=== PATIENT | female | born 1985 | race Caucasian/White ===

== ENCOUNTER → 2018-05-11 | Outpatient (CLI) | payer OTHER ==
[2018-05-11 08:34] LABS: HEMATOCRIT 39.1 % (37.0-47.0); MEAN CELL VOLUME 86 fl (78-100); MEAN CORPUSCULAR HEMOGLOBIN 29 pg (27-31); MEAN CORPUSCULAR HGB CONC 33 g/dL (33-37); MEAN PLATELET VOLUME 9.2 fl (7.4-10.4); PLATELET COUNT 208 K/mm3 (130-400); RED BLOOD COUNT 4.55 M/mm3 (4.10-5.30); RED CELL DISTRIBUTION WIDTH 14.4 % (11.5-14.5); WHITE BLOOD COUNT 3.6 K/mm3 (4.8-10.8)
[2018-05-11 08:48] LABS: ALBUMIN 4.1 g/dL (3.5-5.0); BUN/CREATININE RATIO 20.4 (6.0-26.0); CALCIUM 8.9 mg/dL (8.4-10.2); POTASSIUM 4.3 mmol/L (3.6-5.0); TOTAL BILIRUBIN 0.4 mg/dL (0.2-1.3); TOTAL PROTEIN 6.6 g/dL (6.3-8.2)
[2018-05-11 10:13] LABS: LYMPHOCYTE 29 % (20-51); MONOCYTE 4 % (3-10); NEUTROPHILS 65 % (42-75)
== END ==
LOC: LAB 08:03
PROVIDERS: Nurse Practitioner Family
DX: C71.9 Malignant neoplasm of brain, unspecified (principal)

== ENCOUNTER → 2018-06-02 | Outpatient (CLI) | payer OTHER ==
[2018-06-02 09:24] LABS: HEMOGLOBIN 13.6 g/dL (12.5-16.0); MEAN CELL VOLUME 86 fl (78-100); MEAN CORPUSCULAR HEMOGLOBIN 29 pg (27-31); MEAN CORPUSCULAR HGB CONC 34 g/dL (33-37); PLATELET COUNT 221 K/mm3 (130-400); RED BLOOD COUNT 4.68 M/mm3 (4.10-5.30); RED CELL DISTRIBUTION WIDTH 14.4 % (11.5-14.5); WHITE BLOOD COUNT 3.6 K/mm3 (4.8-10.8)
[2018-06-02 09:28] LABS: ALBUMIN 4.3 g/dL (3.5-5.0); BUN/CREATININE RATIO 25.2 (6.0-26.0); CALCIUM 9.1 mg/dL (8.4-10.2); POTASSIUM 4.3 mmol/L (3.6-5.0); TOTAL BILIRUBIN 0.5 mg/dL (0.2-1.3); TOTAL PROTEIN 7.2 g/dL (6.3-8.2)
[2018-06-02 10:41] LABS: LYMPHOCYTE 19 % (20-51); MONOCYTE 7 % (3-10); NEUTROPHILS 73 % (42-75)
== END ==
LOC: LAB 09:02
PROVIDERS: Nurse Practitioner Family
DX: C71.9 Malignant neoplasm of brain, unspecified (principal)

== ENCOUNTER → 2018-07-01 | Outpatient (CLI) | payer OTHER ==
[2018-07-01 07:48] LABS: HEMATOCRIT 41.6 % (37.0-47.0); HEMOGLOBIN 13.9 g/dL (12.5-16.0); MEAN CELL VOLUME 85 fl (78-100); MEAN CORPUSCULAR HEMOGLOBIN 29 pg (27-31); MEAN CORPUSCULAR HGB CONC 33 g/dL (33-37); MEAN PLATELET VOLUME 8.5 fl (7.4-10.4); PLATELET COUNT 183 K/mm3 (130-400); RED BLOOD COUNT 4.87 M/mm3 (4.10-5.30); RED CELL DISTRIBUTION WIDTH 14.5 % (11.5-14.5); WHITE BLOOD COUNT 3.1 K/mm3 (4.8-10.8)
[2018-07-01 08:02] LABS: LYMPHOCYTE 16 % (20-51); MONOCYTE 10 % (3-10); NEUTROPHILS 66 % (42-75)
[2018-07-01 08:06] LABS: ALBUMIN 4.3 g/dL (3.5-5.0); BUN/CREATININE RATIO 22.7 (6.0-26.0); POTASSIUM 4.2 mmol/L (3.6-5.0); TOTAL BILIRUBIN 0.7 mg/dL (0.2-1.3); TOTAL PROTEIN 6.9 g/dL (6.3-8.2)
== END ==
LOC: LAB 07:28
PROVIDERS: Nurse Practitioner Family
DX: D49.6 Neoplasm of unspecified behavior of brain (principal)

== ENCOUNTER → 2018-08-20 | Outpatient (CLI) | payer OTHER ==
[2018-08-20 07:53] LABS: ALBUMIN 4.2 g/dL (3.5-5.0); CALCIUM 9.1 mg/dL (8.4-10.2); POTASSIUM 4.5 mmol/L (3.6-5.0); TOTAL BILIRUBIN 0.5 mg/dL (0.2-1.3); TOTAL PROTEIN 6.7 g/dL (6.3-8.2)
[2018-08-20 07:58] LABS: HEMATOCRIT 39.8 % (37.0-47.0); HEMOGLOBIN 13.5 g/dL (12.5-16.0); MEAN CELL VOLUME 86 fl (78-100); MEAN CORPUSCULAR HEMOGLOBIN 29 pg (27-31); MEAN CORPUSCULAR HGB CONC 34 g/dL (33-37); MEAN PLATELET VOLUME 8.7 fl (7.4-10.4); PLATELET COUNT 192 K/mm3 (130-400); RED BLOOD COUNT 4.61 M/mm3 (4.10-5.30); RED CELL DISTRIBUTION WIDTH 14.1 % (11.5-14.5); WHITE BLOOD COUNT 3.8 K/mm3 (4.8-10.8)
[2018-08-20 08:17] LABS: BAND 1 % (0-10); LYMPHOCYTE 5 % (20-51); MONOCYTE 9 % (3-10); NEUTROPHILS 62 % (42-75)
== END ==
LOC: LAB 07:05
PROVIDERS: Physician Assistant
DX: C71.9 Malignant neoplasm of brain, unspecified (principal)

== ENCOUNTER → 2018-11-06 | Outpatient (CLI) | payer OTHER ==
[2018-11-06 16:05] LABS: URINE APPEARANCE CLOUDY; URINE BILIRUBIN NEGATIVE (NEGATIVE); URINE COLOR YELLOW; URINE GLUCOSE NEGATIVE (NEGATIVE); URINE KETONE NEGATIVE (NEGATIVE); URINE NITRATE POSITIVE (NEGATIVE); URINE PROTEIN(semi-quant) TRACE mg/dL (NEGATIVE); URINE UROBILINOGEN NORMAL (NORMAL)
[2018-11-06 16:06] LABS: URINE BLOOD 250 ery/uL (NEGATIVE); URINE LEUKOCYTE ESTERASE 2+ (NEGATIVE); URINE WBC >50 /hpf (0-3)
== END ==
LOC: LAB 14:35
PROVIDERS: Physician Assistant
DX: R30.0 Dysuria (principal)

== ENCOUNTER → 2018-11-20 | Outpatient (CLI) | payer OTHER ==
[2018-11-20 10:56] LABS: HEMATOCRIT 42.8 % (37.0-47.0); HEMOGLOBIN 14.6 g/dL (12.5-16.0); MEAN CELL VOLUME 85 fl (78-100); MEAN CORPUSCULAR HEMOGLOBIN 29 pg (27-31); MEAN CORPUSCULAR HGB CONC 34 g/dL (33-37); MEAN PLATELET VOLUME 8.6 fl (7.4-10.4); PLATELET COUNT 220 K/mm3 (130-400); RED BLOOD COUNT 5.02 M/mm3 (4.10-5.30); RED CELL DISTRIBUTION WIDTH 13.7 % (11.5-14.5); WHITE BLOOD COUNT 5.1 K/mm3 (4.8-10.8)
[2018-11-20 11:09] LABS: ALBUMIN 4.8 g/dL (3.5-5.0); CALCIUM 9.8 mg/dL (8.4-10.2); POTASSIUM 4.3 mmol/L (3.6-5.0); TOTAL BILIRUBIN 0.5 mg/dL (0.2-1.3); TOTAL PROTEIN 7.7 g/dL (6.3-8.2)
[2018-11-23 07:43] LABS: BAND 1 % (0-10); LYMPHOCYTE 6 % (20-51); NEUTROPHILS 78 % (42-75)
[2018-11-23 07:44] LABS: MONOCYTE 7 % (3-10)
== END ==
LOC: LAB 10:38
PROVIDERS: Physician Assistant
DX: D49.6 Neoplasm of unspecified behavior of brain (principal)

== ENCOUNTER → 2018-11-23 | Outpatient (CLI) | payer OTHER ==
[2018-11-23 07:49] LABS: HEMATOCRIT 39.1 % (37.0-47.0); HEMOGLOBIN 13.5 g/dL (12.5-16.0); MEAN CELL VOLUME 86 fl (78-100); MEAN CORPUSCULAR HEMOGLOBIN 30 pg (27-31); MEAN CORPUSCULAR HGB CONC 35 g/dL (33-37); MEAN PLATELET VOLUME 8.6 fl (7.4-10.4); PLATELET COUNT 217 K/mm3 (130-400); RED BLOOD COUNT 4.57 M/mm3 (4.10-5.30); RED CELL DISTRIBUTION WIDTH 13.5 % (11.5-14.5); WHITE BLOOD COUNT 3.8 K/mm3 (4.8-10.8)
[2018-11-23 08:06] LABS: LYMPHOCYTE 8 % (20-51); MONOCYTE 3 % (3-10); NEUTROPHILS 76 % (42-75)
== END ==
LOC: LAB 07:31
PROVIDERS: Nurse Practitioner
DX: C71.9 Malignant neoplasm of brain, unspecified (principal)

== ENCOUNTER → 2018-12-29 | Outpatient (CLI) | payer OTHER ==
[2018-12-29 20:12] LABS: HEMATOCRIT 41.9 % (37.0-47.0); HEMOGLOBIN 13.6 g/dL (12.5-16.0); MEAN CELL VOLUME 89 fl (78-100); MEAN CORPUSCULAR HEMOGLOBIN 29 pg (27-31); MEAN CORPUSCULAR HGB CONC 33 g/dL (33-37); MEAN PLATELET VOLUME 9.2 fl (7.4-10.4); PLATELET COUNT 244 K/mm3 (130-400); RED BLOOD COUNT 4.73 M/mm3 (4.10-5.30); RED CELL DISTRIBUTION WIDTH 14.8 % (11.5-14.5); WHITE BLOOD COUNT 5.6 K/mm3 (4.8-10.8)
[2018-12-29 21:02] LABS: ALBUMIN 4.6 g/dL (3.5-5.0); CALCIUM 9.6 mg/dL (8.4-10.2); POTASSIUM 3.9 mmol/L (3.6-5.0); TOTAL BILIRUBIN 0.3 mg/dL (0.2-1.3); TOTAL PROTEIN 7.4 g/dL (6.3-8.2)
[2018-12-29 21:04] LABS: BAND 1 % (0-10); LYMPHOCYTE 3 % (20-51); MONOCYTE 7 % (3-10); NEUTROPHILS 85 % (42-75)
== END ==
LOC: LAB 17:02
PROVIDERS: Physician Assistant
DX: C71.9 Malignant neoplasm of brain, unspecified (principal)

== ENCOUNTER → 2019-03-10 | Outpatient (CLI) | payer OTHER | LOC: LAB 08:25 | DX: N92.6 Irregular menstruation, unspecified (principal) ==

== ENCOUNTER → 2019-03-24 | Outpatient (CLI) | payer OTHER ==
[2019-03-24 12:32] LABS: HEMATOCRIT 46.6 % (37.0-47.0); HEMOGLOBIN 14.9 g/dL (12.5-16.0); MEAN CELL VOLUME 89 fl (78-100); MEAN CORPUSCULAR HEMOGLOBIN 28 pg (27-31); MEAN CORPUSCULAR HGB CONC 32 g/dL (33-37); MEAN PLATELET VOLUME 11.6 fl (7.4-10.4); PLATELET COUNT 243 K/mm3 (130-400); RED BLOOD COUNT 5.24 M/mm3 (4.10-5.30); RED CELL DISTRIBUTION WIDTH 12.8 % (11.5-14.5); WHITE BLOOD COUNT 4.3 K/mm3 (4.8-10.8)
[2019-03-24 12:44] LABS: ALBUMIN 4.7 g/dL (3.5-5.0); CALCIUM 9.2 mg/dL (8.4-10.2); POTASSIUM 4.9 mmol/L (3.6-5.0); TOTAL BILIRUBIN 0.7 mg/dL (0.2-1.3); TOTAL PROTEIN 7.5 g/dL (6.3-8.2)
[2019-03-24 13:35] LABS: BAND 1 % (0-10); LYMPHOCYTE 39 % (20-51); MONOCYTE 15 % (3-10); NEUTROPHILS 40 % (42-75)
== END ==
LOC: LAB 12:04
PROVIDERS: Physician Assistant
DX: C71.3 Malignant neoplasm of parietal lobe (principal)

== ENCOUNTER → 2019-07-20 | Outpatient (CLI) | payer OTHER ==
[2019-07-20 16:30] LABS: ALBUMIN 4.2 g/dL (3.5-5.0); POTASSIUM 4.6 mmol/L (3.5-5.1)
[2019-07-20 16:32] LABS: CALCIUM 9.4 mg/dL (8.3-10.5)
[2019-07-20 16:33] LABS: TOTAL PROTEIN 7.4 g/dL (6.4-8.3)
[2019-07-20 16:35] LABS: TOTAL BILIRUBIN 0.3 mg/dL (0.2-1.2)
== END ==
LOC: LAB 15:43
PROVIDERS: Physician Assistant
DX: C71.3 Malignant neoplasm of parietal lobe (principal)

== ENCOUNTER → 2019-08-12 | Outpatient (CLI) | payer OTHER | LOC: AMSURD 14:07 | DX: N30.00 Acute cystitis without hematuria (principal) | CPT/HCPCS: J0696 ==

== ENCOUNTER 2019-12-15 08:45 | Emergency (ER) | payer OTHER ==
[2019-12-15] MEDS ORDERED: ZYRTEC ALLERGY10 MG PO (08:51)
[2019-12-15] MEDS ORDERED: FLUOXETINE HCL20 MG PO (08:51)
[2019-12-15] MEDS ORDERED: LEVETIRACETAM750 MG PO (08:51)
[2019-12-15 09:31] LABS: EOS # 0.2 (0.04-0.40); EOS % 5.2 % (1.0-5.0); HEMATOCRIT 39.7 % (37.0-47.0); HEMOGLOBIN 13.4 g/dL (12.5-16.0); MEAN CELL VOLUME 86 fl (78-100); MEAN CORPUSCULAR HEMOGLOBIN 29 pg (27-31); MEAN CORPUSCULAR HGB CONC 34 g/dL (33-37); MEAN PLATELET VOLUME 8.9 fl (7.4-10.4); MONO # 0.3 (0.20-0.80); PLATELET COUNT 225 K/mm3 (130-400); RED BLOOD COUNT 4.63 M/mm3 (4.10-5.30); RED CELL DISTRIBUTION WIDTH 13.4 % (11.5-14.5); WHITE BLOOD COUNT 3.1 K/mm3 (4.8-10.8)
[2019-12-15 09:39] LABS: LYMPH# 0.7 (1.50-4.00)
[2019-12-15 09:42] LABS: URINE APPEARANCE CLEAR; URINE BILIRUBIN NEGATIVE (NEGATIVE); URINE BLOOD NEGATIVE (NEGATIVE); URINE COLOR YELLOW; URINE GLUCOSE NEGATIVE (NEGATIVE); URINE KETONE TR (NEGATIVE); URINE LEUKOCYTE ESTERASE NEGATIVE (NEGATIVE); URINE NITRATE NEGATIVE (NEGATIVE); URINE PROTEIN(semi-quant) NEGATIVE (NEGATIVE); URINE UROBILINOGEN NORMAL (NORMAL); URINE WBC 0-1 /hpf (0-3)
[2019-12-15 09:46] LABS: ALBUMIN 4.5 g/dL (3.5-5.0)
[2019-12-15 09:47] LABS: POTASSIUM 4.2 mmol/L (3.5-5.1)
[2019-12-15 09:48] LABS: CALCIUM 9.7 mg/dL (8.3-10.5)
[2019-12-15 09:49] LABS: TOTAL PROTEIN 6.9 g/dL (6.4-8.3)
[2019-12-15 09:51] LABS: TOTAL BILIRUBIN 0.4 mg/dL (0.2-1.2)
[2019-12-15 09:56] LABS: MAGNESIUM 1.87 mg/dL (1.60-2.60)
[2019-12-15] MEDS ORDERED: KEPPRA1000 MG PO (10:42)
[2019-12-15] MEDS ORDERED: DIAZEPAM PO (10:42)
[2019-12-15 10:50] VITALS: BP 161/80
== END 2019-12-15 10:48 | disposition home or self-care (01) ==
LOC: ED 08:45
PROVIDERS: Physician Assistant
DX: C71.9 Malignant neoplasm of brain, unspecified (principal); R56.9 Unspecified convulsions

== ENCOUNTER → 2020-01-10 | Outpatient (CLI) | payer OTHER ==
[2019-12-15 10:50] VITALS: BP 161/80
[~2020-01-10] MED LIST: DIAZEPAM PO; FLUOXETINE HCL20 MG PO; KEPPRA1000 MG PO; LEVETIRACETAM750 MG PO; ZYRTEC ALLERGY10 MG PO
== END ==
LOC: LAB 18:12
DX: N92.6 Irregular menstruation, unspecified (principal)

== ENCOUNTER → 2020-05-05 | Outpatient (CLI) | payer OTHER | LOC: LAB 09:36 | DX: Z20.828 Contact with and (suspected) exposure to other viral communicable diseases (principal) ==

== ENCOUNTER → 2020-05-10 | Outpatient (CLI) | payer OTHER ==
[2020-05-10 18:06] LABS: HEMATOCRIT 35.7 % (37.0-47.0); HEMOGLOBIN 12.2 g/dL (12.5-16.0); MEAN PLATELET VOLUME 8.6 fl (7.4-10.4); RED BLOOD COUNT 3.97 M/mm3 (4.10-5.30); RED CELL DISTRIBUTION WIDTH 13.4 % (11.5-14.5); WHITE BLOOD COUNT 7.9 K/mm3 (4.8-10.8)
[2020-05-10 18:10] LABS: POTASSIUM 3.9 mmol/L (3.5-5.1)
[2020-05-10 18:11] LABS: CALCIUM 9.4 mg/dL (8.3-10.5)
[2020-05-10 18:12] LABS: TOTAL PROTEIN 6.9 g/dL (6.4-8.3)
[2020-05-10 18:19] LABS: TOTAL BILIRUBIN 0.1 mg/dL (0.2-1.2)
[2020-05-10 18:21] LABS: URINE APPEARANCE CLEAR; URINE COLOR YELLOW
[2020-05-10 18:22] LABS: URINE BILIRUBIN NEGATIVE (NEGATIVE); URINE BLOOD NEGATIVE (NEGATIVE); URINE GLUCOSE NEGATIVE (NEGATIVE); URINE KETONE NEGATIVE (NEGATIVE); URINE LEUKOCYTE ESTERASE NEGATIVE (NEGATIVE); URINE NITRATE NEGATIVE (NEGATIVE); URINE PROTEIN(semi-quant) TRACE mg/dL (NEGATIVE); URINE UROBILINOGEN NORMAL (NORMAL); URINE WBC 0-1 /hpf (0-3)
== END ==
LOC: LAB 17:34
PROVIDERS: Nurse Practitioner
DX: R10.11 Right upper quadrant pain (principal)

== ENCOUNTER → 2020-05-12 | Outpatient (CLI) | payer OTHER | LOC: RAD 07:21 | DX: S39.91XA Unspecified injury of abdomen, initial encounter (principal) ==

== ENCOUNTER 2020-11-22 13:05 | Emergency (ER) | payer OTHER ==
[~2020-11-22] VITALS: Ht 185.4 cm; Wt 110.0 kg
[~2020-11-22 13:05] MED LIST changes: -DECADRON 4MG TAB4 MG PO; -KEPPRA 500MG500 MG PO; -KEPPRA750 M1 PO; -SPRINTEC 35 MCG1 TAB PO
[2020-11-22] MEDS ORDERED: KEPPRA 500MG500 MG PO (13:48)
[2020-11-22] MEDS ORDERED: SPRINTEC 35 MCG1 TAB PO (13:49)
[2020-11-22 13:56] LABS: EOS % 0.6 % (1.0-5.0); HEMATOCRIT 38.9 % (37.0-47.0); HEMOGLOBIN 12.9 g/dL (12.5-16.0); MEAN CELL VOLUME 85 fl (78-100); MEAN CORPUSCULAR HEMOGLOBIN 28 pg (27-31); MEAN CORPUSCULAR HGB CONC 33 g/dL (33-37); MEAN PLATELET VOLUME 8.1 fl (7.4-10.4); MONO # 0.4 (0.20-0.80); NEU # 5.1 (1.40-6.50); PLATELET COUNT 192 K/mm3 (130-400); RED BLOOD COUNT 4.57 M/mm3 (4.10-5.30); RED CELL DISTRIBUTION WIDTH 13.6 % (11.5-14.5); WHITE BLOOD COUNT 6.6 K/mm3 (4.8-10.8)
[2020-11-22 14:21] LABS: TROPONIN-I < 0.03 ng/mL (<0.030)
[2020-11-22 14:21] LABS: URINE APPEARANCE CLOUDY; URINE COLOR YELLOW
[2020-11-22 14:22] LABS: URINE BILIRUBIN NEGATIVE (NEGATIVE); URINE BLOOD 250 ery/uL (NEGATIVE); URINE GLUCOSE NEGATIVE (NEGATIVE); URINE KETONE 2+ (NEGATIVE); URINE NITRATE NEGATIVE (NEGATIVE); URINE PROTEIN(semi-quant) 1+ mg/dL (NEGATIVE); URINE UROBILINOGEN NORMAL (NORMAL)
[2020-11-22 14:30] LABS: ALBUMIN 4.4 g/dL (3.5-5.0)
[2020-11-22 14:31] LABS: SODIUM 138 mmol/L (136-145)
[2020-11-22 14:32] LABS: CALCIUM 9.1 mg/dL (8.3-10.5)
[2020-11-22 14:33] LABS: GLUCOSE 95 mg/dL (65-105); TOTAL PROTEIN 7.1 g/dL (6.4-8.3)
[2020-11-22 14:34] LABS: CARBON DIOXIDE 21 mmol/L (22-29)
[2020-11-22 14:35] LABS: TOTAL BILIRUBIN 0.3 mg/dL (0.2-1.2)
[2020-11-22 14:38] LABS: AST-SGOT 12 U/L (5-34)
[2020-11-22 14:39] LABS: ALT/SGPT 12 U/L (0-55)
[2020-11-22 15:35] LABS: URINE LEUKOCYTE ESTERASE NEGATIVE (NEGATIVE)
[2020-11-22] MEDS ORDERED: KEPPRA1000 MG PO (16:49)
[2020-11-22] MEDS ORDERED: DECADRON 4MG TAB4 MG PO (16:49)
[2020-11-22] MEDS ORDERED: KEPPRA750 M1 PO (16:50)
[2020-11-22 19:01] VITALS: BP 146/84
== END 2020-11-22 19:05 | disposition home or self-care (01) ==
LOC: ED 13:05
PROVIDERS: Nurse Practitioner
DX: G81.90 Hemiplegia, unspecified affecting unspecified side (principal); R56.9 Unspecified convulsions; Z85.841 Personal history of malignant neoplasm of brain; Z88.2 Allergy status to sulfonamides
CPT/HCPCS: J1100; J2405; J7030

== ENCOUNTER → 2020-11-22 | Outpatient (CLI) | payer OTHER ==
[~2020-11-22] MED LIST changes: +DECADRON 4MG TAB4 MG PO; +KEPPRA 500MG500 MG PO; +KEPPRA750 M1 PO; +SPRINTEC 35 MCG1 TAB PO
== END ==
LOC: LAB 11:36
DX: J02.9 Acute pharyngitis, unspecified (principal); R19.7 Diarrhea, unspecified; Z20.828 Contact with and (suspected) exposure to other viral communicable diseases

== ENCOUNTER 2020-11-30 08:13 | Outpatient (RCR) | payer OTHER ==
[~2020-11-30 08:13] MED LIST changes: +DECADRON 4MG TAB4 MG PO; +KEPPRA 500MG500 MG PO; +KEPPRA750 M1 PO; +SPRINTEC 35 MCG1 TAB PO
== END 2021-01-18 16:30 | disposition home or self-care (01) ==
LOC: PT 08:13
DX: G81.94 Hemiplegia, unspecified affecting left nondominant side (principal)

== ENCOUNTER → 2020-12-06 | Outpatient (CLI) | payer OTHER ==
[2020-11-22 19:01] VITALS: BP 146/84
[2020-12-06 18:18] LABS: HEMATOCRIT 42.8 % (37.0-47.0); HEMOGLOBIN 14.2 g/dL (12.5-16.0); MEAN CELL VOLUME 87 fl (78-100); MEAN CORPUSCULAR HEMOGLOBIN 29 pg (27-31); MEAN CORPUSCULAR HGB CONC 33 g/dL (33-37); MEAN PLATELET VOLUME 8.4 fl (7.4-10.4); PLATELET COUNT 259 K/mm3 (130-400); RED BLOOD COUNT 4.95 M/mm3 (4.10-5.30); RED CELL DISTRIBUTION WIDTH 14.2 % (11.5-14.5); WHITE BLOOD COUNT 11.2 K/mm3 (4.8-10.8)
[2020-12-06 18:22] LABS: ALBUMIN 4.5 g/dL (3.5-5.0); POTASSIUM 4.2 mmol/L (3.5-5.1)
[2020-12-06 18:23] LABS: CALCIUM 9.1 mg/dL (8.3-10.5)
[2020-12-06 18:26] LABS: TOTAL BILIRUBIN 0.2 mg/dL (0.2-1.2)
[2020-12-06 19:03] LABS: LYMPHOCYTE 11 % (20-51); MONOCYTE 7 % (3-10); NEUTROPHILS 80 % (42-75)
== END ==
LOC: LAB 17:35
PROVIDERS: Physician Assistant
DX: N18.9 Chronic kidney disease, unspecified (principal); D63.1 Anemia in chronic kidney disease

== ENCOUNTER → 2021-01-11 | Outpatient (CLI) | payer OTHER ==
[2021-01-11 14:27] LABS: EOS # 0.1 (0.04-0.40); EOS % 1.6 % (1.0-5.0); HEMATOCRIT 39.5 % (37.0-47.0); HEMOGLOBIN 13.2 g/dL (12.5-16.0); LYMPH# 0.9 (1.50-4.00); MEAN CELL VOLUME 86 fl (78-100); MEAN CORPUSCULAR HEMOGLOBIN 29 pg (27-31); MEAN CORPUSCULAR HGB CONC 33 g/dL (33-37); MEAN PLATELET VOLUME 8.4 fl (7.4-10.4); MONO # 0.4 (0.20-0.80); NEU # 2.9 (1.40-6.50); PLATELET COUNT 233 K/mm3 (130-400); RED BLOOD COUNT 4.58 M/mm3 (4.10-5.30); RED CELL DISTRIBUTION WIDTH 13.2 % (11.5-14.5); WHITE BLOOD COUNT 4.4 K/mm3 (4.8-10.8)
[2021-01-11 14:39] LABS: ALBUMIN 4.2 g/dL (3.5-5.0)
[2021-01-11 14:40] LABS: POTASSIUM 4.2 mmol/L (3.5-5.1)
[2021-01-11 14:42] LABS: TOTAL PROTEIN 6.9 g/dL (6.4-8.3)
[2021-01-11 14:44] LABS: TOTAL BILIRUBIN 0.2 mg/dL (0.2-1.2)
== END ==
LOC: LAB 14:13
PROVIDERS: Family Medicine
DX: C71.9 Malignant neoplasm of brain, unspecified (principal)

== ENCOUNTER → 2021-02-07 | Outpatient (REF) | LOC: LAB 08:32 | DX: Z01.89 Encounter for other specified special examinations (principal); Z20.822 Contact with and (suspected) exposure to COVID-19 ==

== ENCOUNTER → 2021-03-01 | Outpatient (CLI) | payer OTHER ==
[2021-03-01 12:24] LABS: EOS # 0.1 (0.04-0.40); EOS % 1.7 % (1.0-5.0); HEMATOCRIT 42.5 % (37.0-47.0); HEMOGLOBIN 14.2 g/dL (12.5-16.0); LYMPH# 1.3 (1.50-4.00); MEAN CELL VOLUME 87 fl (78-100); MEAN CORPUSCULAR HEMOGLOBIN 29 pg (27-31); MEAN CORPUSCULAR HGB CONC 33 g/dL (33-37); MEAN PLATELET VOLUME 8.8 fl (7.4-10.4); MONO # 0.4 (0.20-0.80); NEU # 2.4 (1.40-6.50); PLATELET COUNT 226 K/mm3 (130-400); RED BLOOD COUNT 4.91 M/mm3 (4.10-5.30); RED CELL DISTRIBUTION WIDTH 13.4 % (11.5-14.5); WHITE BLOOD COUNT 4.2 K/mm3 (4.8-10.8)
[2021-03-01 12:44] LABS: ALBUMIN 4.4 g/dL (3.5-5.0)
[2021-03-01 12:45] LABS: POTASSIUM 3.9 mmol/L (3.5-5.1)
[2021-03-01 12:46] LABS: CALCIUM 9.3 mg/dL (8.3-10.5)
[2021-03-01 12:47] LABS: TOTAL PROTEIN 7.2 g/dL (6.4-8.3)
[2021-03-01 12:49] LABS: TOTAL BILIRUBIN 0.3 mg/dL (0.2-1.2)
== END ==
LOC: LAB 12:06
PROVIDERS: Family Medicine
DX: C71.9 Malignant neoplasm of brain, unspecified (principal)

== ENCOUNTER → 2021-04-18 | Outpatient (CLI) | payer OTHER ==
[2021-04-18 10:28] LABS: BASO # 0.01 (0.02-0.10); EOS # 0.14 (0.04-0.40); EOS % 2.6 % (1.0-5.0); HEMATOCRIT 40.2 % (37.0-47.0); HEMOGLOBIN 13.9 g/dL (12.5-16.0); LYMPH# 1.01 (1.50-4.00); MEAN CELL VOLUME 85 fl (78-100); MEAN CORPUSCULAR HEMOGLOBIN 29 pg (27-31); MEAN CORPUSCULAR HGB CONC 35 g/dL (33-37); MEAN PLATELET VOLUME 8.6 fl (7.4-10.4); MONO # 0.38 (0.20-0.80); NEU # 3.74 (1.40-6.50); PLATELET COUNT 202 K/mm3 (130-400); RED BLOOD COUNT 4.76 M/mm3 (4.10-5.30); RED CELL DISTRIBUTION WIDTH 13.2 % (11.5-14.5); WHITE BLOOD COUNT 5.3 K/mm3 (4.8-10.8)
[2021-04-18 10:29] LABS: ALBUMIN 4.2 g/dL (3.5-5.0)
[2021-04-18 10:30] LABS: POTASSIUM 3.9 mmol/L (3.5-5.1)
[2021-04-18 10:31] LABS: CALCIUM 9.4 mg/dL (8.3-10.5)
[2021-04-18 10:32] LABS: TOTAL PROTEIN 7.2 g/dL (6.4-8.3)
[2021-04-18 10:34] LABS: TOTAL BILIRUBIN 0.4 mg/dL (0.2-1.2)
== END ==
LOC: LAB 10:04
PROVIDERS: Family Medicine
DX: C71.9 Malignant neoplasm of brain, unspecified (principal)

== ENCOUNTER → 2021-05-24 | Outpatient (REF) | LOC: LAB 18:45 | DX: Z20.822 Contact with and (suspected) exposure to COVID-19 (principal) ==

== ENCOUNTER → 2021-06-20 | Outpatient (CLI) | payer OTHER | LOC: RAD 13:29 | DX: I26.09 Other pulmonary embolism with acute cor pulmonale (principal) ==

== ENCOUNTER → 2022-06-27 | Outpatient (REF) | LOC: LAB 10:31 | DX: U07.1 COVID-19 (principal) ==

== ENCOUNTER → 2023-01-22 | Outpatient (CLI) | payer OTHER | LOC: LAB 09:08 | DX: R73.9 Hyperglycemia, unspecified (principal) ==

== ENCOUNTER → 2023-09-17 | Outpatient (CLI) | payer OTHER | LOC: LAB 16:41 | DX: G40.909 Epilepsy, unspecified, not intractable, without status epilepticus (principal) ==

== ENCOUNTER → 2023-12-11 | Outpatient (CLI) | payer OTHER ==
[2023-12-11 15:51] LABS: URINE APPEARANCE CLOUDY (CLEAR); URINE COLOR YELLOW (YELLOW); URINE GLUCOSE NEGATIVE (NEGATIVE); URINE KETONE TR (NEGATIVE); URINE PROTEIN(semi-quant) 3+ (NEGATIVE)
[2023-12-11 15:52] LABS: URINE BILIRUBIN 1+ (NEGATIVE); URINE BLOOD 3+ (NEGATIVE); URINE LEUKOCYTE ESTERASE 2+ (NEGATIVE); URINE NITRATE NEGATIVE (NEGATIVE)
[2023-12-11 16:02] LABS: URINE WBC >50 /hpf (0-3)
== END ==
LOC: LAB 15:16
PROVIDERS: Nurse Practitioner
DX: N39.0 Urinary tract infection, site not specified (principal)